=== PATIENT | female | born 1955 | race African-American/Black ===

== ENCOUNTER 2016-11-03 09:04 | Emergency (ER) | payer MEDICAID, OTHER ==
[2016-11-03] MEDS ORDERED: DIPHENHYDRAMINE HCL 50 MG CAPSULE PO ONE (10:38)
[2016-11-03] MEDS ORDERED: PREDNISONE 20 MG TABLET PO ONE (10:38)
[2016-11-03] MEDS ORDERED: FAMOTIDINE 20 MG TABLET PO ONE (10:39)
[2016-11-03] MEDS ORDERED: EPINEPHRINE INJ/PF 1 MG/1 ML AMPULE IM ONE (10:39)
--- NOTE | 2016-11-03 10:44 | ER Document Report ---
ED Skin Rash/Insect Bite/Abscs - General Chief Complaint: Rash Stated Complaint: SKIN PROBLEM Notes: Patient is complaining of a severely pruritic red rash primarily of her arms and head and face and neck and right buttock that was present when she awakened yesterday morning. She is unaware of any new medications or exposures to any possible allergens. She denies any difficulty breathing or shortness of breath or wheezing. Scratching continuously. Went to the dentist yesterday, after the onset of her itching and rash, and was prescribed an antibiotic. TRAVEL OUTSIDE OF THE [place] IN LAST 30 DAYS: No - Related Data Allergies/Adverse Reactions: acetaminophen [From Lortab] Allergy (Verified 11/03/16 09:11) hydrocodone bitartrate [From Lortab] Allergy (Verified 11/03/16 09:11) Past Medical History - Social History Smoking Status: Current Every Day Smoker Cigarette use (# per day): Yes Chew tobacco use (# tins/day): No Frequency of alcohol use: Occasional Drug Abuse: None Family History: Reviewed & Not Pertinent Patient has suicidal ideation: No Patient has homicidal ideation: No - Past Medical History Cardiac Medical History: Reports: Hx Hypertension Denies: Hx Congestive Heart Failure, Hx Coronary Artery Disease, Hx Heart Attack Pulmonary Medical History: Reports: Hx Bronchitis, Hx Pneumonia Neurological Medical History: Reports: Hx Migraine Endocrine Medical History: Denies: Hx Diabetes Mellitus Type 1, Hx Diabetes Mellitus Type 2 GI Medical History: Reports: Hx Gastroesophageal Reflux Disease, Hx Hepatitis - Hep C Psychiatric Medical History: Reports: Hx Depression Infectious Medical History: Reports: Hx Hepatitis - Hep C Past Surgical History: Reports: Hx Hysterectomy - Immunizations Immunizations up to date: No Hx Diphtheria, Pertussis, Tetanus Vaccination: Yes Review of Systems - Review of Systems Notes: REVIEW OF SYSTEMS: CONSTITUTIONAL : Denies fever. EENT: Denies eye, ear, nose or mouth or throat pain or other symptoms. No oral lesions or swelling. CARDIOVASCULAR: Denies chest pain. RESPIRATORY: Denies cough, chest congestion, or shortness of breath. No wheezes. GASTROINTESTINAL: Denies abdominal pain or nausea, vomiting, or diarrhea. GENITOURINARY: Denies difficulty or painful urinating, urinary frequency, blood in urine. MUSCULOSKELETAL: Denies back or neck pain. Denies joint pain or swelling. SKIN: See history of present illness. NEUROLOGICAL: Denies LOC or altered mental status. Denies headache. Denies sensory loss or motor deficits. PSYCHIATRIC: History of depression. ALL OTHER SYSTEMS REVIEWED AND NEGATIVE. Physical Exam - Vital signs Vitals: Temp Pulse Resp BP Pulse Ox 98.0 F 78 16 128/83 H 94 11/03/16 09:08 11/03/16 09:08 11/03/16 09:08 11/03/16 09:08 11/03/16 09:08 Interpretation: Normal. No: Tachycardic - Notes Notes: PHYSICAL EXAMINATION: GENERAL: Well-appearing, but scratching incessantly. Anxious. HEAD: Atraumatic, normocephalic. ENT: oropharynx clear without exudates. Moist mucous membranes. NECK: Normal range of motion, supple. LUNGS: Breath sounds clear and equal bilaterally. No wheezes heard. HEART: Regular rate and rhythm without murmurs. No tachycardia. ABDOMEN: Soft, nontender. No guarding or rebound. BACK: No tenderness throughout entire back. EXTREMITIES: Normal range of motion without pain. NEUROLOGICAL: Normal speech, normal gait. Normal sensory, motor, and reflex exams. Awake, alert, and oriented x3. Cranial nerves normal. PSYCH: Normal mood, normal affect. SKIN: Warm, dry, no rashes. Patient has urticarial appearing welts on both arms and on the right buttock and around the neck and into her scalp. These lesions are intensely pruritic. They do not appear anywhere except in areas exposed, with the exception of the right buttock where there about 3 red lesions. None of these appear to be infectious. Patient says she's not been outside with her arms exposed in the past few days and has not worked around any vegetation, etc. No new medications. Does not work outside of the household. Course - Re-evaluation Re-evalutation: 11/03/16 11:48 Patient says itching has decreased, although the red itchy splotches are still present. 11/03/16 12:34 Still doing better with decreased itching and rash. - Vital Signs Vital signs: Temp Pulse Resp BP Pulse Ox 98.0 F 78 16 128/83 H 94 11/03/16 09:08 11/03/16 09:08 11/03/16 09:08 11/03/16 09:08 11/03/16 09:08 Discharge - Discharge Clinical Impression: Rash due to allergy, Urticaria Condition: Stable Disposition: HOME, SELF-CARE Additional Instructions: ACUTE ALLERGIC REACTION: Your symptoms are due to an allergic reaction. Allergy can cause hives, swelling of the hands, feet, and face, hoarseness, and difficulty swallowing or breathing. It may be due to exposure to medication, animal dander, foods, infection, or insect bites. Medication is a common cause, even when prior use of this same medication caused no problems. Acute treatment may include adrenalin and antihistamines. Usually, the specific allergic agent can't be identified unless repeated episodes occur. Home treatment includes the following: (1) Stop any suspicious medications. This will be discussed with you. (2) Oral antihistamines for the next four to five days. Example, diphenhydramine (Benadryl) every four hours. (3) You may also use cimetidine (Tagamet), ranitidine (Zantac), or famotidine ( Pepcid) every four hours if diphenhydramine is not controlling itching and hives. (4) Avoid aspirin until the hives completely disappear. (5) Avoid hot baths or showers until the hives are completely gone. Call the doctor if faintness, difficulty swallowing, tightness in the chest , or wheezing occurs. EPINEPHRINE: An injection of epinephrine (also called adrenalin) is used to treat allergic reactions, asthma, and some other medical conditions. It is a stimulant medication that consticts blood vessels, relaxes smooth muscles such as in the bronchioles of the lung, elevates blood pressure, and increases heart rate. It can temporarily make you feel very nervous and shakey, but it's affects last only a short time, about 15 to 30 minutes at most. STEROID MEDICATION: You have been given a medicine of the cortisone/steroid class. This medication is used to control inflammation or allergy. It is usually only given for a short period of time, until the acute process subsides. There are usually no side effects from short-term use of cortisone-like medications. Some persons feel an increased sense of well-being and are not sleepy at bedtime. Long-term use of cortisone medications is best avoided, unless required for a severe condition. If your condition does not remit, or relapses after the course of corticosteroid medication, you should consult your physician. ACID-SUPPRESSING MEDICATION: You have a prescription for medicine which reduces the stomach's secretion of acid. Examples include Zantac, Tagament, and Pepcid. These drugs are often used to allow healing of ulcers or esophagitis. They may be needed to prevent recurrence of ulcers in some patients, or to prevent damage from acid reflux in the esophagus. Take all medication as prescribed, even after the pain is gone. Regular antacids may be added as needed if you have symptoms while taking this medicine. These medications sometimes are prescribed for allergic reactions because they have anti-histaminic effects and relieve the rash and itching of the reaction. There are usually no side effects from this medication. But, in rare cases and particularly in the elderly, serious problems can occur. Contact your doctor if there is fever, rash, hallucinations, confusion, or unusual bruising. Contact your doctor at once if you develop lightheadedness, black or bloody stool, or bloody vomitus. ANTIHISTAMINES: An antihistamine has been given and/or prescribed to control your symptoms. Antihistamines are used for many reasons, including itching, watering eyes, runny nose, allergic swelling, hives, and insect stings. Antihistamines may cause drowsiness, especially with the first dose. Do not operate machinery or drive while under the effects of the medication. Other common side effects include dry mouth and eyes. In older persons, antihistamines can occasionally cause urinary retention, constipation, and trouble focusing the eyes. Do not combine the medication with alcohol, or with any other medication without talking to your doctor. FOLLOW-UP CARE: If you have been referred to a physician for follow-up care, call the physician s office for an appointment as you were instructed or within the next two days. If you experience worsening or a significant change in your symptoms, notify the physician immediately or return to the Emergency Department at any time for re-evaluation. Prescriptions: Famotidine [Pepcid 20 mg Tablet] 20 mg PO BID #15 tablet Hydroxyzine HCl [Atarax 25 mg Tablet] 1 - 2 tab PO QIDP PRN #30 tablet PRN Reason: Prednisone [Deltasone 20 mg Tablet] 3 tab PO DAILY 5 Days
[2016-11-03 13:39] VITALS: BP 129/96
== END 2016-11-03 13:15 | disposition home or self-care (01) ==
LOC: ER 09:04
DX: L50.0 Allergic urticaria (principal); I10 Essential (primary) hypertension; F17.210 Nicotine dependence, cigarettes, uncomplicated; Z88.6 Allergy status to analgesic agent; Z88.5 Allergy status to narcotic agent
CPT/HCPCS: 99282; 96372; J3490 ×2; J0171; J7512

== ENCOUNTER 2016-11-12 15:18 | Emergency (ER) | payer MEDICAID, OTHER ==
--- NOTE | 2016-11-12 16:31 | ER Document Report ---
ED Medical Screen (RME) - General Chief Complaint: Rash Stated Complaint: SKIN ISSUE Mode of Arrival: Ambulatory Information source: Patient Notes: 61-year-old female presents to the emergency department complaining of intermittent persistent itchy rash to right upper extremity over the last 2 weeks. Denies fever or recent illness. I have greeted and performed a rapid initial assessment of this patient. A comprehensive ED assessment and evaluation of the patient, analysis of test results and completion of the medical decision making process will be conducted by additional ED providers. TRAVEL OUTSIDE OF THE [place] IN LAST 30 DAYS: No - Related Data Allergies/Adverse Reactions: acetaminophen [From Lortab] Allergy (Verified 11/12/16 16:01) hydrocodone bitartrate [From Lortab] Allergy (Verified 11/12/16 16:01) Past Medical History - Social History Chew tobacco use (# tins/day): No Frequency of alcohol use: None Drug Abuse: None - Past Medical History Cardiac Medical History: Reports: Hx Hypertension Denies: Hx Congestive Heart Failure, Hx Coronary Artery Disease, Hx Heart Attack Pulmonary Medical History: Reports: Hx Bronchitis, Hx Pneumonia Neurological Medical History: Reports: Hx Migraine Endocrine Medical History: Denies: Hx Diabetes Mellitus Type 1, Hx Diabetes Mellitus Type 2 Renal/ Medical History: Denies: Hx Peritoneal Dialysis GI Medical History: Reports: Hx Gastroesophageal Reflux Disease, Hx Hepatitis - Hep C Psychiatric Medical History: Reports: Hx Depression Infectious Medical History: Reports: Hx Hepatitis - Hep C Past Surgical History: Reports: Hx Hysterectomy - Immunizations Immunizations up to date: No Hx Diphtheria, Pertussis, Tetanus Vaccination: Yes Physical Exam - Vital signs Vitals: Temp Pulse Resp BP Pulse Ox 98.7 F 71 20 139/77 H 96 11/12/16 15:55 11/12/16 15:55 11/12/16 15:55 11/12/16 15:55 11/12/16 15:55 - General General appearance: Appears well, Alert In distress: None Course - Vital Signs Vital signs: Temp Pulse Resp BP Pulse Ox 98.7 F 71 20 139/77 H 96 11/12/16 15:55 11/12/16 15:55 11/12/16 15:55 11/12/16 15:55 11/12/16 15:55
[2016-11-12] MEDS ORDERED: PREDNISONE 20 MG TABLET PO ONE (17:21)
--- NOTE | 2016-11-12 17:25 | ER Document Report ---
ED Skin Rash/Insect Bite/Abscs - General Mode of Arrival: Ambulatory Information source: Patient TRAVEL OUTSIDE OF THE [place] IN LAST 30 DAYS: No - HPI Patient complains to provider of: Skin rash/lesion - General Chief Complaint: Rash Stated Complaint: SKIN ISSUE Notes: Patient is a 61 year old female who presents to the emergency department complaining of an itchy rash onset this morning along the back of her neck and her left upper extremity. Patient states she had a similar rash on her right arm but less severe about 2 weeks ago and that the medication she was prescribed did not help. Patient denies any new detergents, perfumes, or soaps. Patient states that she did go to a friends home before the original rash and then again yesterday before this new rash. Patient states that the friend does not have any new pets or new smells in the home. (AMY BAUMANN) - Related Data Allergies/Adverse Reactions: acetaminophen [From Lortab] Allergy (Verified 11/12/16 16:01) hydrocodone bitartrate [From Lortab] Allergy (Verified 11/12/16 16:01) Past Medical History - General Information source: Patient - Social History Smoking Status: Current Every Day Smoker Chew tobacco use (# tins/day): No Frequency of alcohol use: None Drug Abuse: None Family History: Reviewed & Not Pertinent Patient has suicidal ideation: No Patient has homicidal ideation: No - Past Medical History Cardiac Medical History: Reports: Hx Hypertension Pulmonary Medical History: Reports: Hx Bronchitis, Hx Pneumonia Neurological Medical History: Reports: Hx Migraine GI Medical History: Reports: Hx Gastroesophageal Reflux Disease, Hx Hepatitis - Hep C Psychiatric Medical History: Reports: Hx Depression Infectious Medical History: Reports: Hx Hepatitis - Hep C Past Surgical History: Reports: Hx Hysterectomy - Immunizations Immunizations up to date: No Hx Diphtheria, Pertussis, Tetanus Vaccination: Yes Review of Systems - Review of Systems Constitutional: No symptoms reported EENT: No symptoms reported Cardiovascular: No symptoms reported Respiratory: No symptoms reported Gastrointestinal: No symptoms reported Genitourinary: No symptoms reported Female Genitourinary: No symptoms reported Musculoskeletal: No symptoms reported Skin: See HPI, Rash Hematologic/Lymphatic: No symptoms reported Neurological/Psychological: No symptoms reported -: Yes All other systems reviewed and negative Physical Exam - Vital signs Interpretation: Normal - General General appearance: Appears well, Alert - HEENT Head: Normocephalic, Atraumatic - Respiratory Respiratory status: No respiratory distress - Extremities General lower extremity: Normal inspection, Normal ROM, Normal strength, Normal weight bearing - Neurological Neuro grossly intact: Yes Cognition: Normal Orientation: AAOx4 David Coma Scale Eye Opening: Spontaneous David Coma Scale Verbal: Oriented David Coma Scale Motor: Obeys Commands David Coma Scale Total: 15 Speech: Normal Motor strength normal: LUE, RUE, LLE, RLE - Psychological Associated symptoms: Normal affect, Normal mood - Skin Skin Temperature: Warm Skin Moisture: Dry Skin Color: Normal Skin irregularity: Rash - Diffuse uritcaria Course - Re-evaluation Re-evalutation: 11/12/16 18:00 Patient with urticaria. Will be treated with Benadryl and prednisone. No known allergens. No difficulty breathing or lip swelling. Patient will be discharged home and is to follow-up with her doctor. Return if any worsening or concerning symptoms. Stable for discharge. (MARIANGEL DAVIS) - Vital Signs Vital signs: Temp Pulse Resp BP Pulse Ox 98.5 F 69 18 131/75 H 97 11/12/16 17:34 11/12/16 17:34 11/12/16 17:34 11/12/16 17:34 11/12/16 17:34 (AMY BAUMANN) (MARIANGEL DAVIS) Discharge - Discharge Clinical Impression: Urticaria Condition: Stable Disposition: HOME, SELF-CARE Instructions: Acute Urticaria ([facility]) Prescriptions: Diphenhydramine HCl [Benadryl 25 mg Capsule] 1 cap PO Q4 PRN #1 pkg PRN Reason: Famotidine 20 mg PO BID #30 tablet Loratadine [Claritin 10 mg Tablet] 10 mg PO DAILY #30 tablet Prednisone 40 mg PO DAILY #6 tablet Forms: Return to Work Referrals: GAURANG MILES MD [Primary Care Provider] - Follow up as needed Scribe Attestation: 11/12/16 18:01 I personally performed the services described in the documentation, reviewed and edited the documentation which was dictated to the scribe in my presence, and it accurately records my words and actions. (MARIANGEL DAVIS) Scribe Documentation - Scribe Written by Sagrario:: sagrario Baker, 11/12/16, 1728 acting as scribe for :: Stacie
--- NOTE | 2016-11-12 17:28 | ER Document Report ---
ED Skin Rash/Insect Bite/Abscs - General Chief Complaint: Rash Stated Complaint: SKIN ISSUE Mode of Arrival: Ambulatory TRAVEL OUTSIDE OF THE [place] IN LAST 30 DAYS: No - Related Data Allergies/Adverse Reactions: acetaminophen [From Lortab] Allergy (Verified 11/12/16 16:01) hydrocodone bitartrate [From Lortab] Allergy (Verified 11/12/16 16:01) Past Medical History - General Information source: Patient - Social History Smoking Status: Current Every Day Smoker Chew tobacco use (# tins/day): No Frequency of alcohol use: None Drug Abuse: None Family History: Reviewed & Not Pertinent Patient has suicidal ideation: No Patient has homicidal ideation: No - Past Medical History Cardiac Medical History: Reports: Hx Hypertension Denies: Hx Congestive Heart Failure, Hx Coronary Artery Disease, Hx Heart Attack Pulmonary Medical History: Reports: Hx Bronchitis, Hx Pneumonia Neurological Medical History: Reports: Hx Migraine Endocrine Medical History: Denies: Hx Diabetes Mellitus Type 1, Hx Diabetes Mellitus Type 2 Renal/ Medical History: Denies: Hx Peritoneal Dialysis GI Medical History: Reports: Hx Gastroesophageal Reflux Disease, Hx Hepatitis - Hep C Psychiatric Medical History: Reports: Hx Depression Infectious Medical History: Reports: Hx Hepatitis - Hep C Past Surgical History: Reports: Hx Hysterectomy - Immunizations Immunizations up to date: No Hx Diphtheria, Pertussis, Tetanus Vaccination: Yes Physical Exam - Vital signs Vitals: Temp Pulse Resp BP Pulse Ox 98.7 F 71 20 139/77 H 96 11/12/16 15:55 11/12/16 15:55 11/12/16 15:55 11/12/16 15:55 11/12/16 15:55 Course - Vital Signs Vital signs: Temp Pulse Resp BP Pulse Ox 98.7 F 71 20 139/77 H 96 11/12/16 15:55 11/12/16 15:55 11/12/16 15:55 11/12/16 15:55 11/12/16 15:55 Discharge - Discharge Clinical Impression: Urticaria Condition: Stable Disposition: HOME, SELF-CARE Instructions: Acute Urticaria ([facility]) Prescriptions: Diphenhydramine HCl [Benadryl 25 mg Capsule] 1 cap PO Q4 PRN #1 pkg PRN Reason: Famotidine 20 mg PO BID #30 tablet Loratadine [Claritin 10 mg Tablet] 10 mg PO DAILY #30 tablet Prednisone 40 mg PO DAILY #6 tablet Forms: Return to Work Referrals: GAURANG MILES MD [Primary Care Provider] - Follow up as needed
[2016-11-12 17:40] VITALS: BP 131/75
== END 2016-11-12 17:34 | disposition home or self-care (01) ==
LOC: ER 15:18
DX: L50.9 Urticaria, unspecified (principal); F17.200 Nicotine dependence, unspecified, uncomplicated; I10 Essential (primary) hypertension; Z88.5 Allergy status to narcotic agent
CPT/HCPCS: 99282; J7512

== ENCOUNTER → 2017-02-05 | Outpatient (CLI) | payer MEDICAID | LOC: RAD 11:11 | PROVIDERS: ATTEND Orthopaedic Surgery | DX: S63.641A Sprain of metacarpophalangeal joint of right thumb, initial encounter (principal); X58.XXXA Exposure to other specified factors, initial encounter ==

== ENCOUNTER 2017-03-22 05:55 | Day surgery (SDC) | payer MEDICAID ==
[2017-03-14 09:49] LABS: ABSOLUTE BASOPHILS # (AUTO) 0.1 10^3/uL (0.0-0.2); ABSOLUTE EOSINOPHILS # (AUTO) 0.2 10^3/uL (0.0-0.6); ABSOLUTE LYMPHOCYTES (AUTO) 4.2 10^3/uL (0.5-4.7); ABSOLUTE MONOCYTES (AUTO) 0.6 10^3/uL (0.1-1.4); BASOPHILS % (AUTO) 0.8 % (0-2); EOSINOPHILS % (AUTO) 3.5 % (0-6); HEMATOCRIT 47.5 % (36.0-47.0); HEMOGLOBIN 15.6 g/dL (12.0-15.5); HGB HCT DIFFERENCE -0.7; MEAN CORPUSCULAR HEMOGLOBIN 28.6 pg (27.0-33.4); MEAN CORPUSCULAR HGB CONC 32.8 g/dL (32.0-36.0); MEAN CORPUSCULAR VOLUME 87 fl (80-97); MONOCYTES % (AUTO) 8.5 % (3-13); RED BLOOD COUNT 5.44 10^6/uL (3.72-5.28); RED CELL DISTRIBUTION WIDTH 12.7 % (11.5-14.0); SEGMENTED NEUTROPHILS % (AUTO) 28.2 % (42-78); WHITE BLOOD COUNT 7.1 10^3/uL (4.0-10.5)
[2017-03-14 10:15] LABS: ANION GAP 10 (5-19); BLOOD UREA NITROGEN 8 mg/dL (7-20); CALCIUM 9.6 mg/dL (8.4-10.2); CARBON DIOXIDE 27 mmol/L (22-30); CHLORIDE 108 mmol/L (98-107); CREATININE RESULT 0.94 mg/dL (0.52-1.25); GLUCOSE 107 mg/dL (75-110); SODIUM 144.7 mmol/L (137-145)
--- NOTE | 2017-03-14 10:24 | EKG REPORT ---
SEVERITY:- BORDERLINE ECG - SINUS RHYTHM SHORT MD INTERVAL, ACCELERATED AV CONDUCTION : Confirmed by: Lisa Coker MD 14-Mar-2017 10:22:46
[2017-03-14 11:07] LABS: APPEARANCE,URINE CLOUDY; BILIRUBIN,URINE NEGATIVE (NEGATIVE); GLUCOSE, URINE NEGATIVE (NEGATIVE); KETONES,URINE NEGATIVE (NEGATIVE); LEUKOCYTE ESTERASE,URINE NEGATIVE (NEGATIVE); NITRITE,URINE NEGATIVE (NEGATIVE); PROTEIN,URINE NEGATIVE (NEGATIVE); URINE SPECIFIC GRAVITY 1.025; UROBILINOGEN,URINE NEGATIVE mg/dL (<2.0)
--- NOTE | 2017-03-14 11:09 | RADIOLOGY REPORT (SQ) ---
EXAM DESCRIPTION: CHEST PA/LATERAL COMPLETED DATE/TIME: 03/14/2017 10:45 am REASON FOR STUDY: PRE OP COMPARISON: 03/13/2016 EXAM PARAMETERS: NUMBER OF VIEWS: two views TECHNIQUE: Digital Frontal and Lateral radiographic views of the chest acquired. RADIATION DOSE: NA LIMITATIONS: none FINDINGS: LUNGS AND PLEURA: No opacities, masses or pneumothorax. No pleural effusion. MEDIASTINUM AND HILAR STRUCTURES: No masses or contour abnormalities. HEART AND VASCULAR STRUCTURES: Heart normal size. No evidence for failure. BONES: No acute findings. HARDWARE: None in the chest. OTHER: No other significant finding. IMPRESSION: NO SIGNIFICANT RADIOGRAPHIC FINDING IN THE CHEST. TECHNICAL DOCUMENTATION: JOB ID: [id number] [employer]- All Rights Reserved
[~2017-03-22 05:55] MED LIST: CEFAZOLIN 2 GM/D5W RTU 2 GM/50 ML RTUPB IV PRN; LACTATED RINGERS 1000 ML IV PRN
[2017-03-22] MEDS ORDERED: BUPIVACAINE HCL 0.5 % INJ/PF 30 ML SDV ONE (06:45)
[2017-03-22] MEDS ORDERED: MIDAZOLAM 2 MG/2 ML INJ ONE (06:57)
[2017-03-22] MEDS ORDERED: EPHEDRINE SULFATE INJ 50 MG/1 ML AMPULE ONE (06:57)
[2017-03-22] MEDS ORDERED: PROPOFOL INJ 200 MG/20 ML VIAL IV ONE (06:57)
[2017-03-22] MEDS ORDERED: FENTANYL CITRATE INJ/PF 100 MCG/2 ML AMPUL ONE (06:57)
[2017-03-22] MEDS ORDERED: ACETAMINOPHEN 100 ML IV ONE (06:57)
[2017-03-22] MEDS ORDERED: DEXMEDETOMIDINE INJ 80 MCG/20 ML VIAL IV ONE (06:58)
[2017-03-22] MEDS ORDERED: MORPHINE SULFATE 10 MG/ML INJ IV PRN (08:34)
[2017-03-22] MEDS ORDERED: MEPERIDINE HCL/PF INJ 25 MG/1 ML DISP.SYRIN IV PRN (08:34)
[2017-03-22] MEDS ORDERED: FENTANYL CITRATE INJ/PF 100 MCG/2 ML AMPUL IV PRN ×3 (08:34)
[2017-03-22] MEDS ORDERED: DIPHENHYDRAMINE HCL 50 MG/ML VIAL IV PRN (08:34)
[2017-03-22] MEDS ORDERED: PROMETHAZINE HCL INJ 25 MG/1 ML VIAL IV PRN (08:34)
[2017-03-22] MEDS ORDERED: ONDANSETRON HCL INJ/PF 4 MG/2 ML SDV IV PRN ×2 (08:34→09:31)
--- NOTE | 2017-03-22 09:27 | PDOC DISCHARGE SUMMARY ---
Discharge Summary (SDC) - Discharge Final Diagnosis: RIGHT Chronic UCL Tear Date of Surgery: 03/22/17 Discharge Date: 03/22/17 Condition: Good Treatment or Instructions: Schedule Follow Up w/ Dr. Andrea Babcock @ [facility] for Surgery to be seen in 10-14 days or as scheduled [place]: [place]: [place]: Keep splint clean/dry/intact. Ice and elevate May begin finger range of motion attempting to make full fist. Stool softener of choice when on pain medication. Prescriptions: Oxycodone HCl/Acetaminophen [Percocet 5-325 mg Tablet] 1 - 2 tab PO ASDIR PRN # 40 tablet PRN Reason: Discharge Diet: As Tolerated Respiratory Treatments at Home: Deep Breathing/Coughing Discharge Activity: No Lifting Over 10 Pounds, No Lifting/Push/Pulling Report the Following to Your Physician Immediately: Fever over 101 Degrees, Unusual Bleeding, Redness, Swelling, Warmth, Increased Soreness
[2017-03-22] MEDS ORDERED: OXYCODONE-ACETAMINOPHEN 5-325 MG TABLET PO PRN (09:31)
[2017-03-22] MEDS ORDERED: HYDROMORPHONE HCL INJ/PF 2 MG/ML AMPULE IV PRN (09:31)
--- NOTE | 2017-03-22 09:47 | Operative Report ---
Operative Report DATE OF SURGERY: 03/22/17 PREOPERATIVE DIAGNOSIS: Right Thumb Chronic UCL Rupture POSTOPERATIVE DIAGNOSIS: Same OPERATION: Right Thumb UCL Repair SURGEON: LINDA MANE ANESTHESIA: GA COMPLICATIONS: None ESTIMATED BLOOD LOSS: Minimal PROCEDURE: Indication for above procedure: 61-year-old female with complaints of right thumb pain which have been ongoing ever since she sustained a fall on her thumb. She was treated conservatively including injections which failed to provide relief. At that point we discussed treatment options including continued conservative management versus operative intervention which would include reconstruction utilizing autograft. After discussing these treatment options the joint decision was made to proceed with operative treatment. Procedure In Detail: Patient was seen and evaluated in the preoperative holding area. The upper extremity was initialized and marked. Patient received 2g of Ancef IV for bacterial prophylaxis. Patient was taken back to the operative room where transferred to the operative table and placed under general anesthesia. Once they were adequately anesthetized a nonsterile tourniquet was placed on the upper extremity. A surgical team debriefing was performed ensuring all instrumentation was available, the surgical procedure was discussed with possible concerns reviewed. The upper extremity was prepped with chlorhexidine and alcohol and draped in a sterile fashion. A timeout was done identifying correct patient, procedure and extremity everyone in attendance agree with this and verbalized no concerns. The extremity was exsanguinated the tourniquet was inflated to 250 mmHg. Curvilinear skin incision was made along the ulnar aspect of the MCP joint of the thumb. Blunt dissection was performed small branches of the superficial radial nerve were identified and retracted from the wound and protected. The adductor aponeurosis was then incised 3 mm volar to the tendon. This was then retracted identifying the ulnar collateral ligament injury. There did remain fibers attached to the proximal phalanx but significant instability remained. However there was enough ligament to proceed with repair as opposed to reconstruction. I then prepared the proximal phalanx to place to swivel lock fork-tipped anchors 1 dorsally and one volarly. C arm fluoroscopy was utilized to confirm appropriate [place] and placement of the anchors. These were loaded with labral tape suture and secured into position dorsally and then 1 strand of the labral tape was then brought volarly. 4-0 FiberWire suture was placed in each swivel lock anchor. These were utilized to place horizontal mattress sutures bringing the ulnar collateral ligament back to its insertion point. Under C- arm fluoroscopy I stressed the MCP joint there is no evidence of residual subluxation or displacement radially. To rule out further fixation I proceeded with placement of the Arthrex internal. I prepared the metacarpal proximally to the ulnar collateral ligament insertion at the metacarpal. Under C-arm fluoroscopy I confirmed appropriate bone volarly and dorsally both strands of the labral tape were then placed into the fork-tipped anchor providing the fixation approximately a good stability. During placement of the labral tapes I ensured there was an overtensioning to avoid postoperative stiffness. Final C arm fluoroscopy was obtained confirming appropriate placement of anchors and good stability of the ulnar collateral ligament under stress. Wound was then copiously irrigated with normal saline. The aponeurosis was closed with interrupted 3-0 Vicryl suture. Skin was closed in running subcuticular 4-0 Monocryl reinforced with Dermabond and Steri- Strips. 20 cc of 0.5% Marcaine without epinephrine was injected for postoperative pain control. Patient was placed in a thumb spica splint providing stability from ulnar deviation. Tourniquet was deflated. Patient had normal peripheral perfusion. Sponge counts, instrument counts, needle counts counts were correct. Patient was then awoken from anesthesia. Transferred from the operating room table to the operating room stretcher. There was no intraoperative complications patient tolerated procedure well stable to PACU. Postoperative plan: Patient follow-up in the office in 2 weeks at which point we will proceed with wound check and she was placed in a thumb spica cast. She will continue the cast for a total of 6 weeks postoperatively and then be transitioned into a removable brace and begin range of motion with occupational therapy.
[2017-03-22] MEDS: FENTANYL CITRATE INJ/PF 100 MCG/2 ML AMPUL ONE ×2 (09:54→09:59)
[2017-03-22] MEDS ORDERED: SUCCINYLCHOLINE CHLORIDE INJ 200 MG/10 ML VIAL ONE (11:53)
[2017-03-22] MEDS ORDERED: GLYCOPYRROLATE INJ 0.4 MG/2 ML VIAL ONE (11:53)
[2017-03-22] MEDS ORDERED: DEXAMETHASONE SOD PHOSPHATE INJ 4 MG/1 ML VIAL ONE (11:53)
[2017-03-22] MEDS ORDERED: PHENYLEPHRINE HCL INJ/PF 10 MG/1 ML SDV ONE (11:53)
[2017-03-22] MEDS ORDERED: LIDOCAINE 2% INJ-PF (20 MG/ML) 10 ML AMPUL ONE (11:53)
[2017-03-22] MEDS ORDERED: ONDANSETRON HCL INJ/PF 4 MG/2 ML SDV ONE (11:53)
[2017-03-22] MEDS ORDERED: METOCLOPRAMIDE HCL INJ/PF 10 MG/2 ML SDV ONE (11:53)
[2017-03-22] MEDS ORDERED: KETOROLAC TROMETHAMINE 60 MG/2 ML SDV ONE (11:53)
[2017-03-22 12:51] VITALS: BP 136/79
--- NOTE | 2017-03-22 15:30 | RADIOLOGY REPORT (SQ) ---
EXAM DESCRIPTION: FINGER RIGHT; NO CHG FLUORO COMPLETED DATE/TIME: 03/22/2017 3:18 pm REASON FOR STUDY: ORIF RT THUMB S63.641A SPRAIN OF METACARPOPHALANGEAL JOINT OF RIGHT THUMB, COMPARISON: MRI 02/05/2017 Right thumb films 07/16/2016 FLUOROSCOPY TIME: 21 seconds 3 digital images saved to PACS. TECHNIQUE: Intra-operative images acquired during surgical procedure to evaluate progress. NUMBER OF IMAGES: Cine fluoroscopic images. LIMITATIONS: None. FINDINGS: Intra procedural imaging and fluoro during surgery at the right 1st metacarpophalangeal cristy int. IMPRESSION: Intra procedural imaging and fluoro COMMENT: Quality ID [id number]: Final reports for procedures using fluoroscopy that document radiation exp osure indices, or exposure time and number of fluorographic images (if radiation exposure indices are not available) Please consult full operative report of the attending physician for description of the procedure. TECHNICAL DOCUMENTATION: JOB ID: [id number] [employer]- All Rights Reserved
== END 2017-03-22 11:45 | disposition home or self-care (01) ==
LOC: OMH.OR.ALL 05:55
PROVIDERS: ATTEND Orthopaedic Surgery
PROC: 0MQ70ZZ Repair Right Hand Bursa and Ligament, Open Approach (ICD-10-PCS; principal; 2017-03-22 07:45)
DX: S63.418A Traumatic rupture of collateral ligament of other finger at metacarpophalangeal and interphalangeal joint, initial encounter (principal); W19.XXXA Unspecified fall, initial encounter; S69.91XD Unspecified injury of right wrist, hand and finger(s), subsequent encounter; F17.210 Nicotine dependence, cigarettes, uncomplicated; F12.90 Cannabis use, unspecified, uncomplicated; I10 Essential (primary) hypertension; F32.9 Major depressive disorder, single episode, unspecified; F41.9 Anxiety disorder, unspecified; J45.909 Unspecified asthma, uncomplicated; G47.30 Sleep apnea, unspecified; M19.90 Unspecified osteoarthritis, unspecified site; Z86.73 Personal history of transient ischemic attack (TIA), and cerebral infarction without residual deficits; Z79.82 Long term (current) use of aspirin; Z79.899 Other long term (current) drug therapy
CPT/HCPCS: 93005; 36415; 85025; 80048; 81001; 71020; 73140; 93010; 26540; J2250; J1100; J3490 ×4; J1885; J3010; J2765; J2270; J2370; J0330; J2405; J2704; J0690; J0131; 01830